=== PATIENT | male | born 1955 ===

== ENCOUNTER 2023-02-28 12:15 | Outpatient (CLI) | payer MEDICARE, OTHER, SELFPAY ==
[2023-02-28 12:31] VITALS: BMI 33.7
--- NOTE | 2023-02-28 12:31 | ECG_ITS ---
[facility] Test Date: 2023-02-28 Pat Name: Freddy Back Department: Room: Gender: Male Funeral Service Practitioner/Embalmer: Onel Price : 1955 Requested By: Yolanda Hager Order Number: [id number] Iva MD: Anyi Garrison M.D. Interpretive Statements NAME OF STUDY: TREADMILL STRESS TEST INDICATION: Chest Pain Baseline blood pressure of 128/74 mm Hg, heart rate of 75 beats per minute and oxygen saturation of 98. EKG showed sinus rhythm, leftward axis with nonspecific ST depression . ??? The patient exercised for 3 minutes and 17 seconds on a modified Mark protocol. Patient attained a maximum heart rate of 143 beats per minute(92% of the maximum predicted heart rate) with a blood pressure at the peak exercise of 184/102 mm Hg and oxygen saturation of 97%. The EKG at the peak exercise revealed sinus tachycardia with no significant ST-T wave changes. Patient did not have any chest pain or any significant arrhythmis with the exercise. Study was terminated due to maximal effort. During the recovery phase, there were no new changes. ??? Blood pressure at the end of the recovery phase was 138/79 mm Hg with a heart rate of 87 beats per minute and oxygen saturation of 98%. ??? CONCLUSION: 1. Normal EKG response to treadmill exercise with modified Mark protocol. Patient exercised for 3 minutes and 17 seconds. 2. No exercise-induced chest pain or cardiac arrhythmia 3. Decreased exercise tolerance, attained a maximum of 5.1 METs. 4. Baseline normal blood pressure with normal response to exercise. Exaggerated heart rate response suggestive of deconditioning. Electronically Signed On 03-02-2023 12:39:35 PHONE ENGINEER by Anyi Garrison M.D. [id number]
[2023-02-28 12:59] VITALS: BP 138/79; PULSE 87
== END 2023-02-28 12:16 | disposition home or self-care (01) ==
LOC: CDL 12:16
PROVIDERS: Visit Provider Nurse Practitioner Family
DX: R07.9 Chest pain, unspecified (principal)
CPT/HCPCS: 93017